=== PATIENT | male | born 1935 | race Caucasian/White ===

== ENCOUNTER 2016-12-19 08:45 | Inpatient (IN) | payer MEDICARE, OTHER ==
[~2016-12-19] VITALS: Ht 162.6 cm; Wt 62.6 kg
[2016-12-19] MEDS ORDERED: ISON300T4 PO (09:05)
[2016-12-19] MEDS ORDERED: LOSA50TA21 PO (09:05)
[2016-12-19] MEDS ORDERED: PYRI50TA93 PO (09:05)
[2016-12-19] MEDS ORDERED: ETHA400T8 PO (09:05)
[2016-12-19] MEDS ORDERED: ATOR10TA PO (09:05)
[2016-12-19] MEDS ORDERED: FERR-58 PO (09:05)
[2016-12-19] MEDS ORDERED: ASPI81TA2 PO (09:05)
[2016-12-19] MEDS ORDERED: AMLO10TA2 PO (09:05)
[2016-12-19] MEDS ORDERED: RANI150T8 PO (09:05)
[2016-12-19] MEDS ORDERED: RANO500T3 PO (09:05)
[2016-12-19] MEDS ORDERED: diphenhydrAMINE HCL 25 MG CAPSULE ONE (09:06)
[2016-12-19] MEDS ORDERED: predniSONE 20 MG TABLET ONE (09:06)
[2016-12-19] MEDS ORDERED: PRED5DRO7 LEFTEYE (09:17)
[2016-12-19] MEDS ORDERED: LATA2.5D7 RIGHTEYE (09:17)
[2016-12-19] MEDS ORDERED: FERR324T PO (09:17)
[2016-12-19] MEDS ORDERED: METF500T4 PO (09:17)
[2016-12-19] MEDS ORDERED: diphenhydrAMINE HCL 25 MG CAPSULE PO ONE (09:30)
[2016-12-19] MEDS ORDERED: predniSONE 20 MG TABLET PO ONE (09:30)
[2016-12-19 10:16] LABS: BASOPHILS % (AUTO) 0.6 % (0.0-2.0); EOSINOPHILS # (AUTO) 0.1 /CMM (0.0-0.7); EOSINOPHILS % (AUTO) 8.6 % (0.0-6.0); HEMATOCRIT 39 % (39-51); LYMPHOCYTES # (AUTO) 0.7 /CMM (0.8-4.8); LYMPHOCYTES % (AUTO) 48.5 % (20.0-44.0); MEAN CORPUSCULAR HEMOGLOBIN 31 PG (26.0-33.0); MEAN CORPUSCULAR HGB CONC 33 g/dl (31.0-36.0); MEAN CORPUSCULAR VOLUME 92 fL (80-96); MONOCYTES # (AUTO) 0.3 /CMM (0.1-1.30); MONOCYTES % (AUTO) 21.2 % (2.0-12.0); NEUTROPHILS # (AUTO) 0.3 /CMM (1.8-8.9); NEUTROPHILS % (AUTO) 21.1 % (43.0-81.0); PLATELET COUNT (AUTO) 169 /CMM (150-450); RDW COEFFICIENT OF VARIATION 13.5 (11.5-15.0); RED BLOOD CELL COUNT(AUTO) 4.24 MIL/uL (4.5-6.0)
[2016-12-19 10:22] LABS: CALCIUM, SERUM 8.3 mg/dL (8.5-10.1); CREATININE 1.3 mg/dL (0.6-1.3); WHITE BLOOD COUNT (AUTO) 1.4 K/uL (4.3-11.0)
[2016-12-19 10:29] LABS: ALBUMIN 2.5 g/dL (3.4-5.0); BILIRUBIN,DIRECT 0.1 mg/dL (0.0-0.2); BILIRUBIN,TOTAL 0.2 mg/dL (0.2-1.0); TOTAL PROTEIN, SERUM 5.8 g/dL (6.4-8.2)
[2016-12-19 10:36] LABS: BAND % (MANUAL) 7 % (0.0-5.0); EOSINOPHILS % (MANUAL) 2 % (0-4); LYMPHOCYTES % (MANUAL) 59 % (16-48); MONOCYTES % (MANUAL) 12 % (0-11.0); NEUTROPHILS % (MANUAL) 20 (42-76); PLATELET ESTIMATE ADEQUATE
[2016-12-19 10:38] LABS: INR 0.94 (0.87-1.13)
[2016-12-19 12:15] VITALS: BP 145/84
[2016-12-19] MEDS ORDERED: Z GUARD REMEDY 2 OZ OINT TP PRN (13:00)
[2016-12-19] MEDS ORDERED: prednisoLONE ACET 1% OPHT DROP 5 ML BOTTLE LEFTEYE PRN (13:00)
[2016-12-19] MEDS ORDERED: ONDANSETRON HCL/PF 4 MG/2 ML VIAL IVP PRN (13:00)
[2016-12-19] MEDS ORDERED: ACETAMINOPHEN 325 MG TABLET PO PRN (13:00)
[2016-12-19] MEDS ORDERED: MAG HYDROX/AL HYDROX/SIMETH 30 ML UDC PO PRN (13:00)
[2016-12-19] MEDS ORDERED: HYDROCODONE/APAP 5/325MG 1 EACH TABLET PO PRN (13:00)
[2016-12-19] MEDS ORDERED: ZOLPIDEM TARTRATE 5 MG TABLET PO PRN (13:00)
[2016-12-19] MEDS ORDERED: MORPHINE SULFATE INJ 2 MG/ML DISP.SYRIN IV PRN (13:00)
[2016-12-19] MEDS ORDERED: IV SET PRIMARY PUMP SET 1 EA INFUS.SET MC ONE (15:05)
[2016-12-19] MEDS: IV D5/0.45 NACL 1,000 ML IV PRN (15:11)
[2016-12-19 16:00] VITALS: BP 137/57
[2016-12-19] MEDS: FERROUS SULFATE (325 MG) 325 MG/TAB TABLET PO SCH (16:30)
[2016-12-19] MEDS: LATANOPROST EYE DROP 0.005% 2.5 ML BOTTLE RIGHTEYE SCH (17:55)
[2016-12-19] MEDS: RANEXA 500 MG PO SCH (18:03)
[2016-12-19 20:00] VITALS: BP_SYST 103; BP_SYST 129; BP_DIAS 63; BP_DIAS 69
[2016-12-19 20:40] LABS: LACTIC ACID 2.3 mmol/L (0.4-2.0)
[2016-12-19] MEDS ORDERED: CEFEPIME 1 GM in IV D5W 50 ML IV SCH (21:00)
[2016-12-19] MEDS: FAMOTIDINE (20 MG) 20 MG TABLET PO SCH ×2 (21:24→22:47)
[2016-12-19] MEDS: ENOXAPARIN SODIUM 40 MG/0.4 ML DISP.SYRIN SQ SCH (21:24)
[2016-12-19] MEDS ORDERED: CEFEPIME 1 GM VIAL ONE (21:52)
[2016-12-19] MEDS ORDERED: IV D5W 50 ML IV ONE (22:36)
[2016-12-19] MEDS ORDERED: METOPROLOL SUCCINATE 25 MG TAB.SR.24H ONE (22:39)
[2016-12-19] MEDS: METOPROLOL SUCCINATE 25 MG TAB.SR.24H PO SCH (22:47)
[2016-12-19] MEDS ORDERED: SECONDARY IV SET 1 EA INFUS.SET MC ONE (22:54)
[2016-12-20] VITALS: BP 113/66
[2016-12-20] MEDS ORDERED: IV SET PRIMARY PUMP SET 1 EA INFUS.SET MC ONE (00:06)
[2016-12-20] MEDS ORDERED: CEFEPIME 1 GM VIAL ONE (04:31)
[2016-12-20] MEDS ORDERED: IV D5W 50 ML IV ONE (04:35)
[2016-12-20] MEDS: IV D5/0.45 NACL 1,000 ML IV PRN (05:01)
[2016-12-20 05:27] VITALS: BP 178/68
[2016-12-20 08:00] VITALS: BP 123/64
[2016-12-20 08:04] LABS: BASOPHILS % (AUTO) 1.1 % (0.0-2.0); EOSINOPHILS # (AUTO) 0.1 /CMM (0.0-0.7); EOSINOPHILS % (AUTO) 8.9 % (0.0-6.0); HEMATOCRIT 38 % (39-51); HEMOGLOBIN 12.6 g/dL (13.5-17.5); LYMPHOCYTES # (AUTO) 0.8 /CMM (0.8-4.8); LYMPHOCYTES % (AUTO) 57.4 % (20.0-44.0); MEAN CORPUSCULAR HEMOGLOBIN 31 PG (26.0-33.0); MEAN CORPUSCULAR HGB CONC 33 g/dl (31.0-36.0); MEAN CORPUSCULAR VOLUME 93 fL (80-96); MONOCYTES # (AUTO) 0.2 /CMM (0.1-1.30); MONOCYTES % (AUTO) 17.4 % (2.0-12.0); NEUTROPHILS # (AUTO) 0.2 /CMM (1.8-8.9); NEUTROPHILS % (AUTO) 15.2 % (43.0-81.0); PLATELET COUNT (AUTO) 143 /CMM (150-450); RDW COEFFICIENT OF VARIATION 13.2 (11.5-15.0)
[2016-12-20 08:13] LABS: CALCIUM, SERUM 7.8 mg/dL (8.5-10.1); CREATININE 1.1 mg/dL (0.6-1.3); POTASSIUM 4.3 mmol/L (3.5-5.1)
[2016-12-20 08:17] LABS: MAGNESIUM 1.8 mg/dL (1.8-2.4); PHOSPHORUS 2.7 mg/dL (2.5-4.9)
[2016-12-20 08:25] LABS: WHITE BLOOD COUNT (AUTO) 1.3 K/uL (4.3-11.0)
[2016-12-20 08:39] LABS: LACTIC ACID 2.6 mmol/L (0.4-2.0)
[2016-12-20] MEDS: CEFEPIME 2 GM in IV D5W 100 ML IV SCH ×2 (08:52→20:20)
[2016-12-20] MEDS: ISONIAZID (300 MG) 300 MG TABLET PO SCH (08:53)
[2016-12-20] MEDS: ETHAMBUTOL HCL (400 MG) 400 MG TABLET PO SCH (08:53)
[2016-12-20] MEDS: ATORVASTATIN 10 MG TABLET PO SCH (08:53)
[2016-12-20] MEDS: FERROUS SULFATE (325 MG) 325 MG/TAB TABLET PO SCH ×2 (08:53→16:43)
[2016-12-20] MEDS: METFORMIN 500 MG TABLET PO SCH (08:54)
[2016-12-20] MEDS: ASPIRIN 81 MG TAB.CHEW PO SCH (08:54)
[2016-12-20] MEDS: PYRIDOXINE HCL 50 MG TABLET PO SCH (08:54)
[2016-12-20] MEDS ORDERED: AMLODIPINE BESYLATE 10 MG TABLET PO SCH (09:00)
[2016-12-20] MEDS ORDERED: LOSARTAN POTASSIUM 50 MG TABLET PO SCH (09:00)
[2016-12-20 12:48] LABS: EOSINOPHILS % (MANUAL) 8 % (0-4); LYMPHOCYTES % (MANUAL) 58 % (16-48); MONOCYTES % (MANUAL) 18 % (0-11.0); NEUTROPHILS % (MANUAL) 16 (42-76); PLATELET ESTIMATE DECREASED
[2016-12-20 15:38] LABS: APPEARANCE,URINE CLEAR (CLEAR); BILIRUBIN,URINE NEGATIVE (NEGATIVE); BLOOD, URINE NEGATIVE Ery/uL (NEGATIVE); COLOR,URINE YELLOW (YELLOW); KETONES,URINE NEGATIVE (NEGATIVE); LEUKOCYTE ESTERASE ,URINE NEGATIVE (NEGATIVE); NITRITE, URINE NEGATIVE (NEGATIVE); PH,URINE 5.5 (5.0-8.0); PROTEIN,URINE NEGATIVE (NEGATIVE); UGLUCOSE NEGATIVE (NEGATIVE); UROBILINOGEN,URINE 0.2 EU/dL (0.2)
[2016-12-20 16:00] VITALS: BP 107/67
[2016-12-20] MEDS: RANEXA 500 MG PO SCH (16:43)
[2016-12-20] MEDS: LATANOPROST EYE DROP 0.005% 2.5 ML BOTTLE RIGHTEYE SCH (18:09)
[2016-12-20 20:00] VITALS: BP 140/76
[2016-12-20 20:14] VITALS: BP_SYST 76
[2016-12-20] MEDS: METOPROLOL SUCCINATE 25 MG TAB.SR.24H PO SCH (20:17)
[2016-12-20] MEDS: FAMOTIDINE (20 MG) 20 MG TABLET PO SCH (20:20)
[2016-12-20] MEDS: ENOXAPARIN SODIUM 40 MG/0.4 ML DISP.SYRIN SQ SCH (20:28)
[2016-12-20] MEDS ORDERED: IV D5/0.45 NACL 1,000 ML IV ONE (21:18)
[2016-12-21 08:00] VITALS: BP 115/70
[2016-12-21] MEDS: ATORVASTATIN 10 MG TABLET PO SCH (08:23)
[2016-12-21] MEDS: ASPIRIN 81 MG TAB.CHEW PO SCH (08:23)
[2016-12-21] MEDS: ETHAMBUTOL HCL (400 MG) 400 MG TABLET PO SCH (08:23)
[2016-12-21] MEDS: FAMOTIDINE (20 MG) 20 MG TABLET PO SCH ×2 (08:23→21:15)
[2016-12-21] MEDS: ISONIAZID (300 MG) 300 MG TABLET PO SCH (08:23)
[2016-12-21] MEDS: METFORMIN 500 MG TABLET PO SCH (08:23)
[2016-12-21] MEDS: FERROUS SULFATE (325 MG) 325 MG/TAB TABLET PO SCH ×2 (08:24→16:37)
[2016-12-21] MEDS: PYRIDOXINE HCL 50 MG TABLET PO SCH (08:24)
[2016-12-21] MEDS: CEFEPIME 2 GM in IV D5W 100 ML IV SCH ×2 (09:58→21:15)
[2016-12-21] MEDS: IV D5/0.45 NACL 1,000 ML IV PRN (14:56)
[2016-12-21 16:00] VITALS: BP 118/80
[2016-12-21] MEDS: RANEXA 500 MG PO SCH (16:37)
[2016-12-21] MEDS: LATANOPROST EYE DROP 0.005% 2.5 ML BOTTLE RIGHTEYE SCH (17:08)
[2016-12-21 20:21] LABS: ALANINE AMINOTRANSFERASE 33 U/L (12-78); ALBUMIN 2.3 g/dL (3.4-5.0); ALKALINE PHOSPHATASE 99 U/L (46-116); ASPARTATE AMINOTRANSFERASE 11 U/L (15-37); BILIRUBIN,TOTAL 0.1 mg/dL (0.2-1.0); CALCIUM, SERUM 7.5 mg/dL (8.5-10.1); CARBON DIOXIDE 24 mmol/L (21-32); CHLORIDE 106 mmol/L (98-107); GLUCOSE 158 mg/dL (74-106); POTASSIUM 3.9 mmol/L (3.5-5.1); SODIUM SERUM 140 mmol/L (136-145); TOTAL PROTEIN, SERUM 5.5 g/dL (6.4-8.2); UREA NITROGEN, BLOOD 11 mg/dL (7-18)
[2016-12-21 20:33] LABS: LACTIC ACID 2.3 mmol/L (0.4-2.0)
[2016-12-21 20:44] VITALS: BP 126/60
[2016-12-21 20:56] LABS: BASOPHILS % (AUTO) 1.2 % (0.0-2.0); EOSINOPHILS # (AUTO) 0.2 /CMM (0.0-0.7); EOSINOPHILS % (AUTO) 11.8 % (0.0-6.0); HEMATOCRIT 35 % (39-51); HEMOGLOBIN 11.7 g/dL (13.5-17.5); LYMPHOCYTES # (AUTO) 0.7 /CMM (0.8-4.8); LYMPHOCYTES % (AUTO) 47.1 % (20.0-44.0); MEAN CORPUSCULAR HEMOGLOBIN 31 PG (26.0-33.0); MEAN CORPUSCULAR HGB CONC 33 g/dl (31.0-36.0); MEAN CORPUSCULAR VOLUME 92 fL (80-96); MONOCYTES # (AUTO) 0.2 /CMM (0.1-1.30); MONOCYTES % (AUTO) 17.5 % (2.0-12.0); NEUTROPHILS # (AUTO) 0.3 /CMM (1.8-8.9); NEUTROPHILS % (AUTO) 22.4 % (43.0-81.0); PLATELET COUNT (AUTO) 158 /CMM (150-450); RDW COEFFICIENT OF VARIATION 13.3 (11.5-15.0); RED BLOOD CELL COUNT(AUTO) 3.82 MIL/uL (4.5-6.0)
[2016-12-21] MEDS: METOPROLOL SUCCINATE 25 MG TAB.SR.24H PO SCH (21:15)
[2016-12-21 21:32] LABS: WHITE BLOOD COUNT (AUTO) 1.4 K/uL (4.3-11.0)
[2016-12-21 21:44] LABS: BAND % (MANUAL) 2 % (0.0-5.0); EOSINOPHILS % (MANUAL) 2 % (0-4); LYMPHOCYTES % (MANUAL) 49 % (16-48); MONOCYTES % (MANUAL) 13 % (0-11.0); NEUTROPHILS % (MANUAL) 34 (42-76); PLATELET ESTIMATE ADEQUATE
[2016-12-21 21:47] LABS: ANISOCYTOSIS 1+
[2016-12-21] MEDS: ENOXAPARIN SODIUM 40 MG/0.4 ML DISP.SYRIN SQ SCH (21:48)
[2016-12-21 22:56] LABS: LACTIC ACID REFLEX 1.7 mmol/L (0.4-1.9)
[2016-12-22 06:43] LABS: BASOPHILS % (AUTO) 1.6 % (0.0-2.0); EOSINOPHILS # (AUTO) 0.2 /CMM (0.0-0.7); EOSINOPHILS % (AUTO) 13.2 % (0.0-6.0); HEMATOCRIT 36 % (39-51); HEMOGLOBIN 11.9 g/dL (13.5-17.5); LYMPHOCYTES # (AUTO) 0.5 /CMM (0.8-4.8); LYMPHOCYTES % (AUTO) 42.8 % (20.0-44.0); MEAN CORPUSCULAR HEMOGLOBIN 31 PG (26.0-33.0); MEAN CORPUSCULAR HGB CONC 33 g/dl (31.0-36.0); MEAN CORPUSCULAR VOLUME 92 fL (80-96); MONOCYTES # (AUTO) 0.3 /CMM (0.1-1.30); MONOCYTES % (AUTO) 24.1 % (2.0-12.0); NEUTROPHILS # (AUTO) 0.2 /CMM (1.8-8.9); NEUTROPHILS % (AUTO) 18.3 % (43.0-81.0); PLATELET COUNT (AUTO) 144 /CMM (150-450); RDW COEFFICIENT OF VARIATION 13.5 (11.5-15.0); RED BLOOD CELL COUNT(AUTO) 3.91 MIL/uL (4.5-6.0)
[2016-12-22] MEDS: IV D5/0.45 NACL 1,000 ML IV PRN (06:51)
[2016-12-22 07:03] LABS: LACTIC ACID 1.4 mmol/L (0.4-2.0)
[2016-12-22 07:11] LABS: ALBUMIN 2.2 g/dL (3.4-5.0); BILIRUBIN,TOTAL 0.2 mg/dL (0.2-1.0); CALCIUM, SERUM 7.7 mg/dL (8.5-10.1); POTASSIUM 4.2 mmol/L (3.5-5.1); TOTAL PROTEIN, SERUM 5.3 g/dL (6.4-8.2)
[2016-12-22 07:24] LABS: WHITE BLOOD COUNT (AUTO) 1.2 K/uL (4.3-11.0)
[2016-12-22 08:00] VITALS: BP 119/56
[2016-12-22] MEDS ORDERED: SECONDARY IV SET 1 EA INFUS.SET MC ONE (08:23)
[2016-12-22] MEDS: ASPIRIN 81 MG TAB.CHEW PO SCH (08:58)
[2016-12-22] MEDS: CEFEPIME 2 GM in IV D5W 100 ML IV SCH (08:58)
[2016-12-22] MEDS: METFORMIN 500 MG TABLET PO SCH (08:59)
[2016-12-22] MEDS: ATORVASTATIN 10 MG TABLET PO SCH (08:59)
[2016-12-22] MEDS: ETHAMBUTOL HCL (400 MG) 400 MG TABLET PO SCH (08:59)
[2016-12-22] MEDS: PYRIDOXINE HCL 50 MG TABLET PO SCH (08:59)
[2016-12-22] MEDS: ISONIAZID (300 MG) 300 MG TABLET PO SCH (08:59)
[2016-12-22] MEDS: FERROUS SULFATE (325 MG) 325 MG/TAB TABLET PO SCH ×2 (08:59→17:10)
[2016-12-22] MEDS: FAMOTIDINE (20 MG) 20 MG TABLET PO SCH ×2 (08:59→20:09)
[2016-12-22 10:00] VITALS: BP 119/56
[2016-12-22 11:02] LABS: BAND % (MANUAL) 2 % (0.0-5.0); EOSINOPHILS % (MANUAL) 1 % (0-4); LYMPHOCYTES % (MANUAL) 35 % (16-48); MONOCYTES % (MANUAL) 4 % (0-11.0); NEUTROPHILS % (MANUAL) 58 (42-76)
[2016-12-22 11:04] LABS: PLATELET ESTIMATE ADEQUATE
[2016-12-22] MEDS ORDERED: methylPREDNISolone (4MG) 4 MG TABLET (DAY #1, PC LUNCH) PO ONE (12:30)
[2016-12-22 16:00] VITALS: BP 125/60
[2016-12-22] MEDS: RANEXA 500 MG PO SCH (17:10)
[2016-12-22] MEDS: LATANOPROST EYE DROP 0.005% 2.5 ML BOTTLE RIGHTEYE SCH (17:11)
[2016-12-22] MEDS ORDERED: methylPREDNISolone (4MG) 4 MG TABLET (DAY #1, BEFORE DINNER) PO ONE ×2 (17:30)
[2016-12-22] MEDS ORDERED: methylPREDNISolone (4MG) 4 MG TABLET (DAY #1 PC DINNER) PO ONE (17:30)
[2016-12-22] MEDS ORDERED: methylPREDNISolone DOSPAK(4MG) 1 PACK TAB.DS.PK PO ONE (19:00)
[2016-12-22] MEDS ORDERED: methylPREDNISolone DOSPAK(4MG) 1 PACK TAB.DS.PK PO SCH (19:30)
[2016-12-22] MEDS ORDERED: methylPREDNISolone (4MG) 4 MG TABLET (DAY #1) PO ONE ×2 (19:30)
[2016-12-22] MEDS ORDERED: methylPREDNISolone (4MG) 4 MG TABLET (DAY #1 ) PO ONE (19:30)
[2016-12-22] MEDS: METOPROLOL SUCCINATE 25 MG TAB.SR.24H PO SCH (20:09)
[2016-12-22] MEDS: LORATADINE 10 MG TABLET PO SCH (20:09)
[2016-12-22] MEDS: ENOXAPARIN SODIUM 40 MG/0.4 ML DISP.SYRIN SQ SCH (20:13)
[2016-12-22 20:16] VITALS: BP 111/66
[2016-12-22] MEDS ORDERED: methylPREDNISolone (4MG) 4 MG TABLET (DAY #1, HS) PO ONE ×2 (22:00)
[2016-12-22] MEDS ORDERED: methylPREDNISolone (4MG) 4 MG TABLET (DAY1,HS) PO ONE (22:00)
[2016-12-23 07:02] LABS: BASOPHILS % (AUTO) 1.2 % (0.0-2.0); EOSINOPHILS # (AUTO) 0.2 /CMM (0.0-0.7); EOSINOPHILS % (AUTO) 10.2 % (0.0-6.0); HEMATOCRIT 40 % (39-51); HEMOGLOBIN 13.3 g/dL (13.5-17.5); LYMPHOCYTES # (AUTO) 1.1 /CMM (0.8-4.8); LYMPHOCYTES % (AUTO) 61.2 % (20.0-44.0); MEAN CORPUSCULAR HEMOGLOBIN 31 PG (26.0-33.0); MEAN CORPUSCULAR HGB CONC 34 g/dl (31.0-36.0); MEAN CORPUSCULAR VOLUME 92 fL (80-96); MONOCYTES # (AUTO) 0.2 /CMM (0.1-1.30); MONOCYTES % (AUTO) 11.4 % (2.0-12.0); NEUTROPHILS # (AUTO) 0.3 /CMM (1.8-8.9); PLATELET COUNT (AUTO) 204 /CMM (150-450); RDW COEFFICIENT OF VARIATION 13.4 (11.5-15.0)
[2016-12-23 07:15] LABS: LACTIC ACID 2.6 mmol/L (0.4-2.0)
[2016-12-23 07:22] LABS: WHITE BLOOD COUNT (AUTO) 1.8 K/uL (4.3-11.0)
[2016-12-23 07:24] LABS: RETICULOCYTE COUNT 1.7 % (0.6-2.5)
[2016-12-23] MEDS ORDERED: methylPREDNISolone (4MG) 4 MG TABLET (DAY#2 ACB) PO ONE ×3 (07:30)
[2016-12-23 07:46] LABS: ALANINE AMINOTRANSFERASE 32 U/L (12-78); ALBUMIN 2.8 g/dL (3.4-5.0); ALKALINE PHOSPHATASE 97 U/L (46-116); ASPARTATE AMINOTRANSFERASE 17 U/L (15-37); BILIRUBIN,TOTAL 0.2 mg/dL (0.2-1.0); CALCIUM, SERUM 8.3 mg/dL (8.5-10.1); CARBON DIOXIDE 29 mmol/L (21-32); CHLORIDE 106 mmol/L (98-107); CREATININE 1.2 mg/dL (0.6-1.3); GLUCOSE 124 mg/dL (74-106); POTASSIUM 4.2 mmol/L (3.5-5.1); SODIUM SERUM 142 mmol/L (136-145); TOTAL PROTEIN, SERUM 6.4 g/dL (6.4-8.2); UREA NITROGEN, BLOOD 11 mg/dL (7-18)
[2016-12-23 07:53] LABS: FERRITIN 300 ng/mL (8-388); THYROID STIMULATING HORMONE 2.269 uIU/mL (0.358-3.74)
[2016-12-23 08:00] VITALS: BP 118/70
[2016-12-23 08:13] LABS: IRON, SERUM 99 ug/dl (50-175); TOTAL IRON BINDING CAPACITY 194 ug/dl (250-450)
[2016-12-23] MEDS: PYRIDOXINE HCL 50 MG TABLET PO SCH (09:06)
[2016-12-23] MEDS: ATORVASTATIN 10 MG TABLET PO SCH (09:06)
[2016-12-23] MEDS: ASPIRIN 81 MG TAB.CHEW PO SCH (09:06)
[2016-12-23] MEDS: LORATADINE 10 MG TABLET PO SCH (09:06)
[2016-12-23] MEDS: FAMOTIDINE (20 MG) 20 MG TABLET PO SCH ×2 (09:06→20:14)
[2016-12-23] MEDS: ISONIAZID (300 MG) 300 MG TABLET PO SCH (09:07)
[2016-12-23] MEDS: ETHAMBUTOL HCL (400 MG) 400 MG TABLET PO SCH (09:07)
[2016-12-23] MEDS: FERROUS SULFATE (325 MG) 325 MG/TAB TABLET PO SCH ×2 (09:07→16:54)
[2016-12-23 09:10] LABS: EOSINOPHILS % (MANUAL) 6 % (0-4); LYMPHOCYTES % (MANUAL) 67 % (16-48); MONOCYTES % (MANUAL) 7 % (0-11.0)
[2016-12-23 09:11] LABS: ANISOCYTOSIS 1+; NEUTROPHILS % (MANUAL) 20 (42-76); PLATELET ESTIMATE ADEQUATE
[2016-12-23 10:00] VITALS: BP 118/70
[2016-12-23] MEDS ORDERED: methylPREDNISolone (4MG) 4 MG TABLET (DAY#2,PC LUNCH) PO ONE ×3 (12:30)
[2016-12-23 16:00] VITALS: BP 145/75
[2016-12-23] MEDS: RANEXA 500 MG PO SCH (16:55)
[2016-12-23] MEDS: LATANOPROST EYE DROP 0.005% 2.5 ML BOTTLE RIGHTEYE SCH (17:01)
[2016-12-23] MEDS ORDERED: methylPREDNISolone (4MG) 4 MG TABLET (DAY#2, PC DINNER) PO ONE ×3 (17:30)
[2016-12-23] MEDS ORDERED: DEXTROSE 50%-WATER 50 ML DISP.SYRIN IV PRN (18:00)
[2016-12-23] MEDS ORDERED: *INSULIN REGULAR(HUMULIN R)HUM 100 UNIT/ML VIAL SQ PRN (18:00)
[2016-12-23] MEDS: INSULIN REGULAR, HUMAN 100 UNIT/ML 3 ML VIAL SQ PRN (18:19)
[2016-12-23] MEDS: BLOOD SUGAR DIAGNOSTIC 1 EACH STRIP VI SCH ×2 (18:20→21:20)
[2016-12-23] MEDS: RIFAMPIN 300 MG CAPSULE PO SCH (19:22)
[2016-12-23 19:47] VITALS: BP 151/75
[2016-12-23] MEDS: METOPROLOL SUCCINATE 25 MG TAB.SR.24H PO SCH (19:55)
[2016-12-23 20:00] VITALS: BP 151/75
[2016-12-23] MEDS: ENOXAPARIN SODIUM 40 MG/0.4 ML DISP.SYRIN SQ SCH (20:18)
[2016-12-23] MEDS ORDERED: methylPREDNISolone (4MG) 4 MG TABLET (DAY#2, HS) PO ONE ×3 (21:00)
[2016-12-24] MEDS: BLOOD SUGAR DIAGNOSTIC 1 EACH STRIP VI SCH (05:57)
[2016-12-24] MEDS: INSULIN REGULAR, HUMAN 100 UNIT/ML 3 ML VIAL SQ PRN (06:26)
[2016-12-24] MEDS ORDERED: methylPREDNISolone (4MG) 4 MG TABLET (DAY#3,ACB) PO ONE ×3 (07:30)
[2016-12-24 08:00] VITALS: BP 137/55
[2016-12-24 08:18] LABS: IMMUNOGLOBULIN A, SERUM 106 mg/dL (61-437); IMMUNOGLOBULIN G, SERUM 775 mg/dL (700-1600); IMMUNOGLOBULIN M, SERUM 21 mg/dL (15-143)
[2016-12-24] MEDS: ASPIRIN 81 MG TAB.CHEW PO SCH (08:41)
[2016-12-24] MEDS: LORATADINE 10 MG TABLET PO SCH (08:41)
[2016-12-24] MEDS: ATORVASTATIN 10 MG TABLET PO SCH (08:42)
[2016-12-24] MEDS: ISONIAZID (300 MG) 300 MG TABLET PO SCH (08:42)
[2016-12-24] MEDS: PYRIDOXINE HCL 50 MG TABLET PO SCH (08:42)
[2016-12-24] MEDS: RIFAMPIN 300 MG CAPSULE PO SCH (08:42)
[2016-12-24] MEDS: FERROUS SULFATE (325 MG) 325 MG/TAB TABLET PO SCH (08:42)
[2016-12-24] MEDS: FAMOTIDINE (20 MG) 20 MG TABLET PO SCH (08:42)
[2016-12-24] MEDS ORDERED: ETHAMBUTOL HCL (400 MG) 400 MG TABLET PO SCH (09:00)
[2016-12-24] MEDS ORDERED: ETHAMBUTOL HCL PO (09:44)
[2016-12-24] MEDS ORDERED: RIFA300C2 PO (09:44)
[2016-12-24] MEDS ORDERED: Loratadine PO (09:44)
[2016-12-24] MEDS ORDERED: METO25TA3 PO (09:44)
[2016-12-24 12:23] LABS: *SPE A/G RATIO 1.2 (0.7-1.7); *SPE ALBUMIN 3.1 g/dL (2.9-4.4); *SPE ALPHA-1-GLOBULIN 0.3 g/dL (0.0-0.4); *SPE ALPHA-2-GLOBULIN 0.7 g/dL (0.4-1.0); *SPE BETA GLOBULIN 0.8 g/dL (0.7-1.3); *SPE GLOBULIN, TOTAL 2.6 g/dL (2.2-3.9); *SPE M-SPIKE Not Observed g/dL (Not Observed); *SPE PROTEIN TOTAL 5.7 g/dL (6.0-8.5); *SPEGAMMA GLOBULIN 0.9 g/dL (0.4-1.8)
[2016-12-24] MEDS ORDERED: methylPREDNISolone (4MG) 4 MG TABLET (DAY#3,PC LUNCH) PO ONE ×3 (12:30)
[2016-12-24] MEDS ORDERED: methylPREDNISolone (4MG) 4 MG TABLET (DAY#3,PC DINNER) PO ONE ×3 (17:30)
[2016-12-24] MEDS ORDERED: methylPREDNISolone (4MG) 4 MG TABLET (DAY#3, HS) PO ONE ×3 (22:00)
[2016-12-25] MEDS ORDERED: methylPREDNISolone (4MG) 4 MG TABLET (DAY #4, ACB) PO ONE ×3 (07:30)
[2016-12-25] MEDS ORDERED: methylPREDNISolone (4MG) 4 MG TABLET (DAY #4, PC LUNCH) PO ONE ×3 (12:30)
[2016-12-25] MEDS ORDERED: methylPREDNISolone (4MG) 4 MG TABLET (DAY#4 HS) PO ONE ×3 (22:00)
[2016-12-26] MEDS ORDERED: methylPREDNISolone (4MG) 4 MG TABLET (DAY#5, ACB) PO ONE ×3 (07:30)
[2016-12-26] MEDS ORDERED: methylPREDNISolone (4MG) 4 MG TABLET (DAY#5,HS) PO ONE ×3 (22:00)
[2016-12-27] MEDS ORDERED: methylPREDNISolone (4MG) 4 MG TABLET (DAY#6,ACB) PO ONE ×3 (07:30)
== END 2016-12-24 11:00 | disposition home or self-care (01) | DRG 916 ==
LOC: ER 08:50 → TELE 12:19 → MED 12-20 10:44
PROVIDERS: ADMIT Internal Medicine; ATTEND Internal Medicine
DX: T78.3XXA Angioneurotic edema, initial encounter (principal); E87.2 Acidosis; E44.0 Moderate protein-calorie malnutrition; E78.5 Hyperlipidemia, unspecified; R13.10 Dysphagia, unspecified; I50.9 Heart failure, unspecified; I25.10 Atherosclerotic heart disease of native coronary artery without angina pectoris; I11.0 Hypertensive heart disease with heart failure; Z86.11 Personal history of tuberculosis; K21.9 Gastro-esophageal reflux disease without esophagitis; R21 Rash and other nonspecific skin eruption; T50.905A Adverse effect of unspecified drugs, medicaments and biological substances, initial encounter; D70.9 Neutropenia, unspecified; E11.9 Type 2 diabetes mellitus without complications; H54.42 Blindness, left eye, normal vision right eye; I25.2 Old myocardial infarction; Z79.84 Long term (current) use of oral hypoglycemic drugs
CPT/HCPCS: 36415; 71010-TC; 80048-TC; 80053-TC; 80061-TC; 80076-TC; 81000-TC; 82248-TC; 82728-TC; 82746; 82784; 82962-TC; 83540-TC; 83605-TC; 83735-TC; 84100-TC; 84155; 84165; 84439-TC; 84443-TC; 85025-TC; 85045-TC; 85730-TC; 86334; 86850-TC; 87040-TC; 87081-TC; 88305-TC; A4606; J0692; J1650; J1815; J3490; J7060; J7509; Q0163; Z7610

== ENCOUNTER 2017-01-12 11:16 | Emergency (ER) | payer MEDICARE, OTHER ==
[~2017-01-12] VITALS: Ht 162.6 cm; Wt 63.5 kg
[~2017-01-12 11:16] MED LIST: AMLO10TA2 PO; ASPI81TA2 PO; ATOR10TA PO; ETHAMBUTOL HCL PO; FERR324T PO; ISON300T4 PO; LATA2.5D7 RIGHTEYE; Loratadine PO; METO25TA3 PO; PRED5DRO7 LEFTEYE; PYRI50TA93 PO; RANI150T8 PO; RANO500T3 PO; RIFA300C2 PO
[2017-01-12 11:22] VITALS: BP 115/69
--- NOTE | 2017-01-12 12:11 | NUR ---
2 SUTURES REMOVED. D/C IN STABLE CONDITION.
== END 2017-01-12 12:12 | disposition home or self-care (01) ==
LOC: ER 11:19
DX: S41.112D Laceration without foreign body of left upper arm, subsequent encounter (principal); I10 Essential (primary) hypertension; E11.9 Type 2 diabetes mellitus without complications; D64.9 Anemia, unspecified; Z79.82 Long term (current) use of aspirin; X58.XXXD Exposure to other specified factors, subsequent encounter
CPT/HCPCS: 99281; A4606; Z7502; Z7610

== ENCOUNTER 2017-05-01 07:55 | Emergency (ER) | payer MEDICARE, OTHER ==
[~2017-05-01] VITALS: Ht 162.6 cm; Wt 64.9 kg
--- NOTE | 2017-05-01 08:00 | NUR ---
PATIENT BIB C/O NECK AND UPPER BACK PAIN S/P GLF FROM BED. PATIENT IS A/OX 4, DENIES LOC. BREATHING EVEN AND UNLABORED ON ROOM AIR. NO SOB. VITALS STABLE. SAFETY AND COMFORT MEASURES IN PLACE. AWAITING MD ORDERS.
--- NOTE | 2017-05-01 08:23 | NUR ---
PT TO CT
[2017-05-01] MEDS ORDERED: ONDANSETRON 4 MG TAB.RAPDIS PO ONE (08:30)
[2017-05-01] MEDS ORDERED: HYDROCODONE/APAP 5/325MG 1 EACH TABLET PO ONE (08:30)
[2017-05-01] MEDS ORDERED: CYCLOBENZAPRINE 10 MG TABLET PO ONE (08:30)
--- NOTE | 2017-05-01 08:30 | NUR ---
PATIENT RETURNED FROM CT
[2017-05-01] MEDS ORDERED: CYCLOBENZAPRINE 10 MG TABLET ONE (08:33)
[2017-05-01] MEDS ORDERED: HYDROCODONE/APAP 5/325MG 1 EACH TABLET ONE (08:33)
[2017-05-01] MEDS ORDERED: ONDANSETRON 4 MG TAB.RAPDIS ONE (08:33)
[2017-05-01 09:38] VITALS: BP 110/62
--- NOTE | 2017-05-01 09:39 | NUR ---
Patient discharged to home in stable condition. Written and verbal after care instructions given. Patient verbalizes understanding of instruction.
== END 2017-05-01 09:50 | disposition home or self-care (01) ==
LOC: ER 08:02
DX: S16.1XXA Strain of muscle, fascia and tendon at neck level, initial encounter (principal); S09.90XA Unspecified injury of head, initial encounter; R51 Headache; D61.818 Other pancytopenia; E11.9 Type 2 diabetes mellitus without complications; I10 Essential (primary) hypertension; Z79.82 Long term (current) use of aspirin; W06.XXXA Fall from bed, initial encounter; Y92.89 Other specified places as the place of occurrence of the external cause; Y93.89 Activity, other specified; Y99.8 Other external cause status
CPT/HCPCS: 70450; 72125; 99284; A4606; Q0162; Z7610